=== PATIENT | male | born 1965 | race African-American/Black ===

== ENCOUNTER 2024-07-18 11:31 | Inpatient (IN) | payer OTHER ==
[2024-07-18 12:22] VITALS: BMI 21.2
[2024-07-18] MEDS ORDERED: NALOXONE (NARCAN) HCL 4 MG/0.1 ML SPRAY NS PRN (13:23)
[2024-07-18] MEDS ORDERED: IBUPROFEN 400 MG TABLET (FP) PO PRN (13:23)
[2024-07-18] MEDS ORDERED: ONDANSETRON *ODT* 4 MG TABLET SL PRN (13:23)
[2024-07-18] MEDS ORDERED: BENZOCAINE/MENTHOL (CHLORASEPTIC ) LOZENGE MM PRN (13:23)
[2024-07-18] MEDS ORDERED: BISMUTH SUBSALICYLATE 524 MG/30 ML PO PRN (13:23)
[2024-07-18] MEDS ORDERED: DICYCLOMINE HCL 10 MG CAPSULE PO PRN (13:23)
[2024-07-18] MEDS ORDERED: MAG HYDROX/AL HYDROX/SIMETH 30 ML UNIT-DOSE CUP PO PRN (13:23)
[2024-07-18] MEDS ORDERED: ACETAMINOPHEN 325 MG TABLET (FP) PO PRN (13:23)
[2024-07-18] MEDS ORDERED: IBUPROFEN 600 MG TABLET (FP) PO PRN (13:23)
[2024-07-18] MEDS ORDERED: MAGNESIUM HYDROX 2400MG/30ML ORAL SUSPENSION 30 ML CUP PO PRN (13:23)
[2024-07-18] MEDS ORDERED: POLYETHYLENE GLYCOL (HEALTHYLAX) 3350 17 GM PACKET PO PRN (13:23)
[2024-07-18] MEDS ORDERED: LOPERAMIDE HCL 2 MG CAPSULE PO PRN (13:23)
[2024-07-18] MEDS: guaiFENesin 600 MG TABLET.ER (FP) PO PRN (19:56)
[2024-07-18] MEDS: ALBUTEROL SO4 HFA INHALER IH PRN (19:56)
[2024-07-18] MEDS: BENZONATATE 200 MG CAPSULE PO PRN (19:56)
[2024-07-18] MEDS: BUDESONIDE/FORMETEROL FUMARATE 160/4.5 mcg INHALER IH SCH (22:40)
[2024-07-18] MEDS: hydrOXYzine PAMOATE 25 MG CAPSULE (FP) PO PRN (22:40)
[2024-07-18] MEDS: THIAMINE 100 MG TABLET PO SCH (22:40)
[2024-07-18] MEDS: MELATONIN 5 MG TABLETS PO SCH (22:40)
[2024-07-18] MEDS: cloNIDine HCL 0.1 MG TABLET PO ONE (22:42)
[2024-07-18] MEDS: METHOCARBAMOL 500 MG TABLET PO PRN (23:58)
[2024-07-19] MEDS: FAMOTIDINE 20 MG TABLET PO SCH (07:22)
[2024-07-19 09:18] VITALS: RESP 18
[2024-07-19] MEDS: PRENATAL VITAMINS W/ FOLIC ACID TABLET (FP) PO SCH (09:40)
[2024-07-19] MEDS: FUROSEMIDE 40 MG TABLET (FP) PO SCH (09:54)
[2024-07-19] MEDS: MONTELUKAST NA 10 MG TABLET PO SCH (09:54)
[2024-07-19] MEDS: NIFEdipine E.R. 30 MG TABLET PO SCH (09:54)
[2024-07-19] MEDS: SPIRONOLACTONE 25 MG TABLET PO SCH (09:54)
[2024-07-19] MEDS: BICTEGRAV/EMTRICIT/TENOFOV (BIKTARVY) 50-200-25 MG TABLET PO SCH (09:54)
[2024-07-19] MEDS: predniSONE 20 MG TABLET (UD) PO SCH (09:58)
[2024-07-19] MEDS: RIVAROXABAN 20 MG TABLET PO SCH (10:20)
[2024-07-19] MEDS: SACUBITRIL/VALSARTAN 24 MG-26 MG TABLET PO SCH ×2 (12:57→22:57)
[2024-07-19] MEDS: NALOXONE (NYS OPIOID OVERDOSE PROGRAM) 4 MG/0.1 ML SPRAY NS SCH (12:57)
[2024-07-20 13:39] VITALS: BP 110/74; PULSE 88; TEMP 96.9
[2024-07-20] MEDS: ALBUTEROL SO4 2.5/IPRATROPIUM 0.5 INH SOL 3 ML VIAL.NEB. NEB PRN (14:59)
== END 2024-07-20 15:42 | disposition home or self-care (01) | DRG 774 ==
LOC: YASAS 11:31 → Y6N 13:38
PROVIDERS: ADMIT Psychiatry & Neurology Pain Medicine; ATTEND Family Medicine Addiction Medicine
PROC: HZ2ZZZZ Detoxification Services for Substance Abuse Treatment (ICD-10-PCS; principal; 2024-07-18)
DX: F10.230 Alcohol dependence with withdrawal, uncomplicated (principal); F14.20 Cocaine dependence, uncomplicated; Z21 Asymptomatic human immunodeficiency virus [HIV] infection status; I11.0 Hypertensive heart disease with heart failure; I50.9 Heart failure, unspecified; J43.0 Unilateral pulmonary emphysema [MacLeod's syndrome]; J40 Bronchitis, not specified as acute or chronic; K21.9 Gastro-esophageal reflux disease without esophagitis; Z95.5 Presence of coronary angioplasty implant and graft; Z87.891 Personal history of nicotine dependence; Z79.899 Other long term (current) drug therapy; Z79.01 Long term (current) use of anticoagulants
CPT/HCPCS: 0241U-QW; 80305; 80307; 93005; 93010; 94640